=== PATIENT | female | born 1975 | race Caucasian/White ===

== ENCOUNTER 2017-11-08 21:41 | Emergency (ER) | payer SELFPAY ==
[2017-11-08 21:42] VITALS: BP 158/60; PULSE 101; RESP 16; TEMP 35.8; O2SAT 96; BMI 33.9
[2017-11-08 21:47] VITALS: PULSE 93; RESP 21; O2SAT 97
--- NOTE | 2017-11-08 21:54 | EKG12_ITS ---
Test Reason : CP Blood Pressure : / mmHG Vent. Rate : 089 BPM Atrial Rate : 089 BPM P-R Int : 140 ms QRS Dur : 096 ms QT Int : 386 ms P-R-T Axes : 062 028 030 degrees QTc Int : 469 ms Normal sinus rhythm Normal ECG Confirmed by ANDREE CARR, CASSIUS ([id number]), editor at large VALENTIN LACY ([id number] on 11/10/2017 1:06:50 PM Referred By: ANG STANTON Confirmed By:CASSIUS CANDELARIO MD
--- NOTE | 2017-11-08 21:57 | NURSING ---
NO OLD EKG
--- NOTE | 2017-11-08 21:57 | ED.VISSUMM ---
- ER Visit Summary Date of Service: 11/08/17 Chief Complaint: Tenuous right sided shoulder and chest pain for approximately 1 week and swelling of the right long finger with abnormality in the palm. History of Present Illness: The patient is a 42 F who states she has no past medical history on no medication presents with right-sided shoulder and chest pain for approximately 1 week. The discomfort is worse with use of her right upper extremity and movement. There is increased pain with activity. The discomfort is not positional or related to food. The discomfort is not related to exertion. She at one point stated the pain was worse with palpation. She denies history of PE or DVT or any risk factors. She denies any leg pain, swelling discoloration. She does admit to smoking one half pack per day. She states she has not used any illicit drugs in 5 years. She is a occasional/social drinker. She denies any fever, chills or night sweats. She denies weight gain or weight loss. She denies any ocular, visual or auditory symptoms. She does complain of nasal congestion. She does complain of a nonproductive cough which is chronic. She denies any GI, or muscle skeletal symptoms. She denies rash. 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 She denies any paresthesia, anesthesia motor weakness. She denies any swelling. Physical Examination: Vital signs are remarkable for blood pressure 158/60 respiratory 21. She is not febrile nor is she hypoxic. Head is atraumatic normocephalic. Pupils are equal round reactive. Extraocular muscles are intact. TMs are pearly white with landmarks noted. Nares patent with no drainage. Posterior pharynx without erythema or exudate. Uvula is midline. There is no dysphonia or dysphasia. Trachea is midline. There is no stridor with auscultation of the neck. Heart is regular without murmur, gallop or rub. S1 and S2 are normal. Lungs are clear to auscultation with good movement of air bilaterally. There is no reproducible right-sided chest or shoulder pain. Axillary, median, radial and ulnar function intact. There is swelling of the right long finger compared to the other fingers. There is evidence of Dupuytren's contracture involving the flexor tendon or the right long finger and the left long finger. She also complains of her fingerstick being. Unable to palpate a mass. Symptoms are consistent with a trigger finger. Abdomen is soft nontender. Bowel sounds are present and normal. There is no palpable semester down bruit. There is no asymmetry, swelling, discoloration, leg vein distention, palpable cords or tenderness along the distribution of the deep venous system. She is alert and oriented with a nonfocal neurologic exam. Test Results: EKG is normal with a rate of 89. CBC is normal. BMP is marked for glucose of 72. Troponin with 1 week of pain is less than 0.02. Chest x-ray reveals chronic changes with discoid atelectasis left lower lobe. There is fluid in the fissure on the right. There is no abnormality of the superior aspect of the right upper lobe, clavicle, humerus or ribs. Emergency Department Course and Treatment: EKG was obtained to evaluate for cardiac ischemia, pericarditis, or other abnormalities that may explain her right-sided chest pain. Chest x-ray was obtained to evaluate for pneumothorax, pneumonia or other causes of her right-sided chest pain. Blood work was obtained in the event this is atypical presentation for cardiac disease. Treatment Plan: Since patient is workup is negative with 1 week of constant pain she will be discharged to home to follow-up with Dr. Barbosa. She was instructed to take either Advil or Aleve for her discomfort. She also was told it is in her best interest to stop smoking. Disposition: Discharged to home with appropriate home-going instructions Impression: 1. Right-sided chest pain and shoulder pain of unknown cause 2. Tobacco use This note was generated with [employer] dictation software. It may contain incorrect words, spelling, and punctuation that were not noted in review of the chart prior to signing ED Disposition - Plan for ED Patient: Disposition: Home or Assisted Living Chief Complaint: Chest Pain Instructions: ED Chest Pain NonCardiac Referrals: Rios Barbosa, [Primary Care Provider] - 3-5 Days if not improving Additional Instructions: You can either take for ibuprofen (Advil) every 8 hours or 2 naproxen (Aleve) every 12 hours for your discomfort.
--- NOTE | 2017-11-08 22:00 | RAD_ITS ---
STUDY: X-RAY CHEST REASON FOR EXAM: Female, 42 years old. Right-sided chest pain. TECHNIQUE: PA and lateral views of the chest. COMPARISON: Prior comparison studies are not available for review at this time. FINDINGS: Cardiac monitoring leads are present. Curvilinear opacities are visible the lung bases probably secondary to subsegmental atelectasis. There is no demonstrated pleural abnormality. Normal size heart. Normal mediastinum and jael. There is prominence of the pulmonary hilar arteries without peripheral pulmonary vascular congestion. There is atherosclerotic calcification of the aortic arch with tortuosity. There is demineralization of the osseous structures. Normal visualized ribs, clavicles, and shoulders. There is no demonstrated abnormality of the visualized soft tissue structures of the upper abdomen. RAD/Chest PA and Lateral IMPRESSION: Bilateral basilar subsegmental atelectasis. Electronically Signed: Katie Koenig MD at 22:34 EDT , Service support ,
--- NOTE | 2017-11-08 22:01 | ED.DCSUM_ITS ---
- ER Visit Summary Date of Service: 11/08/17 Chief Complaint: Tenuous right sided shoulder and chest pain for approximately 1 week and swelling of the right long finger with abnormality in the palm. History of Present Illness: The patient is a 42 F who states she has no past medical history on no medication presents with right-sided shoulder and chest pain for approximately 1 week. The discomfort is worse with use of her right upper extremity and movement. There is increased pain with activity. The discomfort is not positional or related to food. The discomfort is not related to exertion. She at one point stated the pain was worse with palpation. She denies history of PE or DVT or any risk factors. She denies any leg pain, swelling discoloration. She does admit to smoking one half pack per day. She states she has not used any illicit drugs in 5 years. She is a occasional/ social drinker. She denies any fever, chills or night sweats. She denies weight gain or weight loss. She denies any ocular, visual or auditory symptoms. She does complain of nasal congestion. She does complain of a nonproductive cough which is chronic. She denies any GI, or muscle skeletal symptoms. She denies rash. 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 She denies any paresthesia, anesthesia motor weakness. She denies any swelling. Physical Examination: Vital signs are remarkable for blood pressure 158/60 respiratory 21. She is not febrile nor is she hypoxic. Head is atraumatic normocephalic. Pupils are equal round reactive. Extraocular muscles are intact. TMs are pearly white with landmarks noted. Nares patent with no drainage. Posterior pharynx without erythema or exudate. Uvula is midline. There is no dysphonia or dysphasia. Trachea is midline. There is no stridor with auscultation of the neck. Heart is regular without murmur, gallop or rub. S1 and S2 are normal. Lungs are clear to auscultation with good movement of air bilaterally. There is no reproducible right-sided chest or shoulder pain. Axillary, median, radial and ulnar function intact. There is swelling of the right long finger compared to the other fingers. There is evidence of Dupuytren 's contracture involving the flexor tendon or the right long finger and the left long finger. She also complains of her fingerstick being. Unable to palpate a mass. Symptoms are consistent with a trigger finger. Abdomen is soft nontender. Bowel sounds are present and normal. There is no palpable semester down bruit. There is no asymmetry, swelling, discoloration, leg vein distention, palpable cords or tenderness along the distribution of the deep venous system. She is alert and oriented with a nonfocal neurologic exam. Test Results: EKG is normal with a rate of 89. CBC is normal. BMP is marked for glucose of 72. Troponin with 1 week of pain is less than 0.02. Chest x- ray reveals chronic changes with discoid atelectasis left lower lobe. There is fluid in the fissure on the right. There is no abnormality of the superior aspect of the right upper lobe, clavicle, humerus or ribs. Emergency Department Course and Treatment: EKG was obtained to evaluate for cardiac ischemia, pericarditis, or other abnormalities that may explain her right-sided chest pain. Chest x-ray was obtained to evaluate for pneumothorax, pneumonia or other causes of her right-sided chest pain. Blood work was obtained in the event this is atypical presentation for cardiac disease. Treatment Plan: Since patient is workup is negative with 1 week of constant pain she will be discharged to home to follow-up with Dr. Barbosa. She was instructed to take either Advil or Aleve for her discomfort. She also was told it is in her best interest to stop smoking. Disposition: Discharged to home with appropriate home-going instructions Impression: 1. Right-sided chest pain and shoulder pain of unknown cause 2. Tobacco use This note was generated with [employer] dictation software. It may contain incorrect words, spelling, and punctuation that were not noted in review of the chart prior to signing ED Disposition - Plan for ED Patient: Disposition: Home or Assisted Living Chief Complaint: Chest Pain Instructions: ED Chest Pain NonCardiac Referrals: Rios Barbosa, [Primary Care Provider] - 3-5 Days if not improving Additional Instructions: You can either take for ibuprofen (Advil) every 8 hours or 2 naproxen (Aleve) every 12 hours for your discomfort.
[2017-11-08 22:04] LABS: Absolute Lymphocyte Count 2.21 X10^3/ul (0.83-4.51); Absolute Neutrophil Count 6.7 X10^3/uL (2.0-7.7); Basophil# 0.02 X10^3/uL; Basophil% 0.2 % (0-1); Eosinophil# 0.19 X10^3/uL; Eosinophils% 1.9 % (0-5); Hematocrit 38.1 % (37-47); Hemoglobin 12.7 g/dl (12.0-15.0); Lymphocyte # 2.21 X10^3/ul (4.0); Lymphocyte % 21.9 % (19-41); Mean Corp Hgb Conc 33.3 g/gl (32-36); Mean Corpuscular Hgb 30.4 pg (27.0-32.0); Mean Corpuscular Volume 91.1 fL (81-99); Mean Platelet Vol. 9.3 fl (6.2-12.0); Monocyte# 0.99 X10^3/uL; Monocyte% 9.8 % (0-10); Neutrophil # 6.65 X10^3/uL (2.7-7.7); Neutrophil % 66.1 % (47-70); Platelet Count 313 K/mm3 (150-450); RBC Distribution Width CV 13.6 % (11.6-14.6); RBC Distribution Width SD 44.9 fl (35.1-43.9); Red Blood Count 4.18 M/mm3 (4.2-5.4); White Blood Count 10.1 K/mm3 (4.4-11.0)
[2017-11-08 22:06] LABS: POSITIVE COUNT NO; POSITIVE DIFFERENTIAL NO; POSITIVE MORPHOLOGY NO
[2017-11-08 22:17] LABS: Anion Gap 8 (5-15); BUN 15 mg/dL (7-18); BUN/Creat Ratio 18.9 RATIO (10-20); Calcium,Total 8.4 mg/dL (8.5-10.1); Chloride 106 mmol/L (98-107); Creatinine, Serum 0.79 mg/dL (0.55-1.02); EST Glomerular Filtration Rate 84 mL/min (>60); Est Glom Filt Rate - Afr Amer 102 mL/min (>60); Estimated Creatinine Clearance 79.29 ml/min; Glucose 72 mg/dL (74-106); Potassium 3.8 mmol/L (3.5-5.1); Sodium Level 142 mmol/L (136-145)
[2017-11-08 22:35] VITALS: BP 124/70; PULSE 87; RESP 15; O2SAT 96
== END 2017-11-08 22:51 | disposition home or self-care (01) ==
PROVIDERS: Emergency Provider Emergency Medicine; Family Provider Student in an Organized Health Care Education/Training Program; PCP Student in an Organized Health Care Education/Training Program
DX: R07.89 Other chest pain (principal); M25.511 Pain in right shoulder; F17.200 Nicotine dependence, unspecified, uncomplicated; M79.89 Other specified soft tissue disorders; J98.11 Atelectasis; R09.81 Nasal congestion; J34.89 Other specified disorders of nose and nasal sinuses; R05 Cough
CPT/HCPCS: 71046; 80048; 84484; 85025; 93005; 99284; A4216